=== PATIENT | male | born 1945 ===

== ENCOUNTER 2017-09-23 10:30 | Inpatient (IN) | payer OTHER ==
[~2017-09-23] VITALS: Ht 170.2 cm; Wt 76.2 kg
[2017-09-23] MEDS ORDERED: LOPRES PO (12:33)
[2017-09-23] MEDS ORDERED: COZAAR50 MG PO (12:34)
[2017-09-23] MEDS ORDERED: AMILODIPINE PO (12:34)
[2017-09-23] MEDS ORDERED: SPIRONOLACT PO (12:35)
[2017-09-23] MEDS ORDERED: OMEPRAZOLE20 MG PO (12:35)
[2017-09-23] MEDS ORDERED: SINGULAIR10 MG PO (12:36)
[2017-09-23] MEDS ORDERED: ZOCOR20 MG PO (12:36)
[2017-10-11] MEDS ORDERED: PERCOCET 5-3251 EACH PO (08:52)
[2017-10-11] MEDS ORDERED: XARELTO10 MG PO (08:52)
[2017-10-11] MEDS ORDERED: DUI500 PO (08:52)
== END 2017-10-11 12:30 | DRG 470 ==
LOC: O/R 10-08 05:49 → SURH 10-08 10:36
PROVIDERS: Orthopaedic Surgery
PROC: 0QND0ZZ Release Right Patella, Open Approach (ICD-10-PCS; 2017-10-08)
PROC: 0SRC0J9 Replacement of Right Knee Joint with Synthetic Substitute, Cemented, Open Approach (ICD-10-PCS; principal; 2017-10-08 07:45)
DX: M17.11 Unilateral primary osteoarthritis, right knee (principal); M80.00XA Age-related osteoporosis with current pathological fracture, unspecified site, initial encounter for fracture; I10 Essential (primary) hypertension